=== PATIENT | male | born 1940 | race Caucasian/White ===

== ENCOUNTER → 2019-09-22 | Outpatient (CLI) | payer MEDICARE ==
[~2019-09-22] MED LIST: AMLO5TAB9 PO; ASPI-556 PO; ATOR10 PO; FINA5TAB41 PO; INSLAN SQ; METH500T6 PO; RAMI10CA69 PO; TAMS0.4C32 PO; TYL3 PO; UBID200C18 PO; ZOLP10TA6 PO
== END | disposition home or self-care (01) ==
LOC: RAH 13:10
PROVIDERS: ATTEND Urology
DX: N40.0 Benign prostatic hyperplasia without lower urinary tract symptoms (principal); M54.5 Low back pain; N28.1 Cyst of kidney, acquired
CPT/HCPCS: 76770